=== PATIENT | female | born 1985 | race Caucasian/White ===

== ENCOUNTER 2016-09-26 16:32 | Emergency (ER) | payer OTHER ==
[~2016-09-26 16:32] MED LIST: BACTRIM DS TABL1 TA1 PO; CIPRO PO; CLARITIN10 M3 PO; CLEOCIN150 M2 PO; CLEOCIN150 MG PO; ERYTHROMYCIN250 M1 PO; ERYTHROMYCIN500 MG PO; LORTAB 5/500 TA1 TA1 PO; MAGIC MOUTH WASH PO; NO MEDICATIONS; NORFLEX100 MG PO; PEN-VEE K PO; PERCOCET 5/321 UDTAB PO; PHENERGAN PO; PREDNISONE PO; PRENATAL1 TA1 PO; PRILOSEC20 M1 PO; TRAMADOL HCL50 M1 PO; TYLENOL #3 PO; ULTRAM ER100 MG PO; ZYRTEC PO; ZYRTEC10 M2 PO; [UNRECOGNIZED DRUG - OTHER]
[2016-09-26] MEDS ORDERED: SERTRALINE HCL50 MG PO (16:35)
== END 2016-09-26 17:15 | disposition home or self-care (01) ==
LOC: SED 16:32
DX: L05.91 Pilonidal cyst without abscess (principal); K21.9 Gastro-esophageal reflux disease without esophagitis; F17.200 Nicotine dependence, unspecified, uncomplicated; Z88.0 Allergy status to penicillin; Z79.899 Other long term (current) drug therapy
CPT/HCPCS: 99282

== ENCOUNTER 2016-10-03 23:29 | Emergency (ER) | payer OTHER ==
[~2016-10-03] VITALS: Ht 165.1 cm; Wt 85.7 kg
[~2016-10-03 23:29] MED LIST changes: +SERTRALINE HCL50 MG PO
[2016-10-04 01:27] LABS: BASOPHIL# 0.1 X10e3 (0-0.3); BASOPHIL% 0.8 % (0-2.5); EOSINOPHIL# 0.2 X10e3 (0-0.7); EOSINOPHIL% 1.8 % (0.0-7.0); HEMATOCRIT 39.3 % (35.0-45.0); HEMOGLOBIN 13.1 gm/dL (12.0-16.0); LYMPHOCYTE# 2.4 X10e3 (1.0-3.5); LYMPHOCYTE% 26.2 % (17.0-45.0); MEAN CELL VOLUME 88.2 FL (83-96); MEAN CORPUSCULAR HEMOGLOBIN 29.4 PG (28-34); MEAN CORPUSCULAR HGB CONC 33.3 g/dL (30-36); MEAN PLATELET VOLUME 9.2 FL (6.5-11.5); MONOCYTE# 1.1 X10e3 (0-1.0); MONOCYTE% 11.5 % (3.0-12.0); NEUTROPHIL# 5.5 X10e3 (1.5-7.1); NEUTROPHIL% 59.7 % (40-75); PLATELET COUNT 256 X10e3 (140-420); RED BLOOD COUNT 4.46 X10e (3.90-5.30); RED CELL DISTRIBUTION WIDTH 13.4 % (11.0-15.5); WHITE BLOOD COUNT 9.3 X10e3 (4.0-10.5)
[2016-10-04 01:34] LABS: DIFF IND NO
[2016-10-04 01:56] LABS: CALCIUM SERUM 8.6 mg/dL (8.4-10.2); CREATININE SERUM 0.8 mg/dL (0.6-1.4); GLOM FILT RATE Estimated 97.6 mL/min (>60); POTASSIUM 3.9 mmol/L (3.5-5.1)
[2016-10-04] MEDS ORDERED: KEFLEX500 M2 (10:43)
[2016-10-04] MEDS ORDERED: VOLTAREN25 MG (10:43)
[2016-10-04] MEDS ORDERED: BACTRIM 400-801 EACH (10:44)
== END 2016-10-04 02:28 | disposition home or self-care (01) ==
LOC: CED 23:29
PROVIDERS: Emergency Medicine
DX: L05.91 Pilonidal cyst without abscess (principal); F41.9 Anxiety disorder, unspecified; K21.9 Gastro-esophageal reflux disease without esophagitis; F17.200 Nicotine dependence, unspecified, uncomplicated; Z88.0 Allergy status to penicillin; Z88.8 Allergy status to other drugs, medicaments and biological substances
CPT/HCPCS: 36415; 80048; 85025; 99284

== ENCOUNTER 2016-10-04 10:23 | Emergency (ER) | payer OTHER ==
[~2016-10-04] VITALS: Ht 165.1 cm; Wt 90.7 kg
[2016-10-04] MEDS ORDERED: VOLTAREN25 MG (10:43)
[2016-10-04] MEDS ORDERED: KEFLEX500 M2 (10:43)
[2016-10-04] MEDS ORDERED: BACTRIM 400-801 EACH (10:44)
== END 2016-10-04 10:55 | disposition home or self-care (01) ==
LOC: SED 10:23
DX: R11.0 Nausea (principal); R20.9 Unspecified disturbances of skin sensation; F41.9 Anxiety disorder, unspecified; F17.200 Nicotine dependence, unspecified, uncomplicated; Z88.1 Allergy status to other antibiotic agents; Z88.0 Allergy status to penicillin; Z88.6 Allergy status to analgesic agent; Z91.018 Allergy to other foods; Z79.899 Other long term (current) drug therapy
CPT/HCPCS: 99283